=== PATIENT | male | born 1950 | race Caucasian/White ===

== ENCOUNTER → 2020-10-18 08:46 | Outpatient (CLI) | payer MEDICARE, SELFPAY | PROVIDERS: Visit Provider Urology | DX: R33.9 Retention of urine, unspecified (principal); N31.9 Neuromuscular dysfunction of bladder, unspecified; N30.01 Acute cystitis with hematuria; K59.2 Neurogenic bowel, not elsewhere classified; Q05.9 Spina bifida, unspecified; E11.65 Type 2 diabetes mellitus with hyperglycemia; Z87.448 Personal history of other diseases of urinary system; Z98.890 Other specified postprocedural states; Z86.69 Personal history of other diseases of the nervous system and sense organs | CPT/HCPCS: 36415; 51702; 51798; 80048; 81002; 87077; 87086; 87185; 87186; 99215 ==

== ENCOUNTER → 2020-10-18 09:57 | Outpatient (CLI) | payer MEDICARE, SELFPAY ==
[2020-10-18 11:19] LABS: BUN Creatinine Ratio 26.2 (6-22); Blood Urea Nitrogen 17 mg/dL (9-20); Calcium 9.9 mg/dL (8.4-10.2); Carbon Dioxide 24 mmol/L (22-32); Chloride 104 mmol/L (98-107); Estimated Glomerular Filt Rate > 60.0 mL/min (>60); Glucose 153 mg/dL (80-110); HEMOLYSIS < 15 (0-50); Potassium 4.5 mmol/L (3.4-5.1); Sodium 137 mmol/L (137-145)
== END ==
PROVIDERS: Referring Provider Urology; Visit Provider Urology
DX: R33.9 Retention of urine, unspecified (principal); Z87.448 Personal history of other diseases of urinary system
CPT/HCPCS: 36415; 80048

== ENCOUNTER → 2022-09-27 08:10 | Outpatient (CLI) | payer MEDICARE, SELFPAY ==
--- NOTE | 2022-09-27 | DI.NM.S_ITS ---
PROCEDURE: NM JACQUELINE PERF SPECT R&S PHARM Rest and pharmacological stress myocardial perfusion SPECT with gated imaging and ejection fraction RADIOPHARMACEUTICAL: 12 mCi Tc-99m tetrafosmin IV at rest and 26.5 mCi Tc-99m tetrafosmin IV at peak effect of pharmacological stress. Dio-[id number]-pdzltzbe was performed. INDICATIONS: Exertional chest pain TECHNIQUE: Radiopharmaceutical was injected at peak stress test, and also at rest. SPECT images were obtained. SPECT myocardial perfusion images were displayed in short axis, horizontal long axis, and vertical long axis views. Gated images were reviewed using [employer] software. COMPARISON: None. CARDIAC STRESS: A pharmacologic stress test was performed under the supervision of an attending staff, using an infusion of lexiscan 0.4mg IV X1. Hemodynamic data: There is normal blood pressure and heart rate response to pharmacologic stress. Symptoms: The patient denied anginal chest pain. Aminophylline: none EKG: No diagnostic changes of ischemia; rare PVCs. FINDINGS: Raw data: There is good myocardial uptake of radiotracer. No significant motion artifacts. Left ventricle function: Gated images demonstrate normal left ventricular wall thickening. No segmental wall motion abnormalities. No transient ischemic dilation; TID is 1.11 (normal less than 1.3). Left ventricle resting end diastolic volume is 139 mL. Left ventricle stress ejection fraction is 68%; normal range is above 45%. Myocardial perfusion: There is a mildly intense predominantly fixed basal inferior wall defect that is probably artifact but old non-transmural infarction without significant ischemia can't be definitively excluded. SSS 1. No prone images obtained as the patient unable to do so. IMPRESSION: Low risk, probably normal pharmaceutical nuclear stress test 1) There is a mildly intense predominantly fixed basal inferior wall defect that is probably artifact but old non-transmural infarction without significant ischemia can't be definitively excluded. SSS 1. No prone images obtained as the patient unable to do so. 2) Normal left ventricular size, wall motion, and systolic function (EF post stress 68%). 3) No diagnostic ST changes with lexsican. 4) No angina during the study. 5) No prior nuclear stress test available for comparison. Dictated by: Kaden Chavez MD on 09/27/2022 at 16:26 Approved by: Kaden Chavez MD on 09/27/2022 at 16:29
== END ==
PROVIDERS: Referring Provider Internal Medicine Cardiovascular Disease; Visit Provider Internal Medicine Cardiovascular Disease
DX: R07.9 Chest pain, unspecified (principal); R94.31 Abnormal electrocardiogram [ECG] [EKG]; R26.9 Unspecified abnormalities of gait and mobility; E11.65 Type 2 diabetes mellitus with hyperglycemia; Z79.4 Long term (current) use of insulin
CPT/HCPCS: 78452; 93017; A9502; J2785